=== PATIENT | female | born 1970 | race Caucasian/White ===

== ENCOUNTER 2016-09-20 11:00 | Outpatient (CLI) | payer OTHER ==
--- NOTE | 2016-09-20 18:59 | MRI Report ---
EXAM: LEFT KNEE MRI WITHOUT CONTRAST EXAM DATE: 09/20/2016 11:56 a.m. CLINICAL HISTORY: Left knee pain for one year. COMPARISON: None. TECHNIQUE: Multiplanar, multisequence T1-weighted and fluid-sensitive sequences of the knee without c ontrast. Other: None. FINDINGS: Cruciate ligaments: The posterior cruciate ligament appears normal. The anterior cruciate ligament is thickened with increased intrasubstance signal. Cyst associated with the upper fibers of the anterio r cruciate ligament measuring 1.0 x 1.0 x 0.4 cm. Medial meniscus: Intact. No tear is identified. Lateral meniscus: Intrasubstance degeneration at the root of the anterior horn. No tear identified. Collateral ligaments: The medial and fibular collateral ligaments appear intact. Bones and articular surfaces: Moderate cartilage thinning and fissuring over the central aspect and l ateral facet of the patella with slight associated subchondral edema. Slight cartilage thinning and s urface irregularity in the medial compartment. Mild degree of marrow edema at the posterior medial as pect of the lateral femoral condyle which may be related to the ACL attachment. Extensor mechanism: The patellar tendon and quadriceps insertion appear intact. IMPRESSION: 1. Abnormal thickening and edema involving the anterior cruciate ligament with cystic change at the u pper aspect. This may represent mucoid degeneration and/or scarring from a previous injury. 2. Prominent intrasubstance degeneration at the root of the anterior horn lateral meniscus. 3. Mild medial and patellofemoral compartment osteoarthritis. [facility] MUSCULOSKELETAL RADIOLOGY SECTION Referring Provider Line: [phone] SITE ID: [id number]
== END 2016-09-20 11:01 | disposition home or self-care (01) ==
LOC: DI 11:00
PROVIDERS: ATTEND Registered Nurse Diabetes Educator
DX: M23.342 Other meniscus derangements, anterior horn of lateral meniscus, left knee (principal); M17.12 Unilateral primary osteoarthritis, left knee

== ENCOUNTER 2019-06-28 08:00 | Outpatient (CLI) | payer BC, OTHER ==
[2019-06-28 18:35] LABS: BASOPHILS # (AUTO) 0.1 10^3/uL (0.0-0.1); BASOPHILS % (AUTO) 0.7 %; EOSINOPHILS # (AUTO) 0.1 10^3/uL (0.0-0.7); EOSINOPHILS % (AUTO) 1.4 %; HGB - HEMOGLOBIN 14.1 g/dL (12.0-16.0); LYMPHOCYTES # (AUTO) 1.8 10^3/uL (1.5-3.5); LYMPHOCYTES % (AUTO) 25.5 %; MEAN CORPUSCULAR HEMOGLOBIN 31.6 pg (27.0-31.0); MEAN CORPUSCULAR HGB CONC 32.6 g/dL (32.0-36.0); MEAN CORPUSCULAR VOLUME 97.1 fL (81.0-99.0); MEAN PLATELET VOLUME 11.7 fL (7.9-10.8); MONOCYTES # (AUTO) 0.5 10^3/uL (0.0-1.0); MONOCYTES % (AUTO) 7.6 %; NEUTROPHILS # (AUTO) 4.6 10^3/uL (1.5-6.6); NEUTROPHILS % (AUTO) 64.4 %; PLT - PLATELET COUNT 287 10^3/uL (130-450); RED BLOOD COUNT 4.46 10^6/uL (4.20-5.40); RED CELL DISTRIBUTION WIDTH 12.6 % (12.0-15.0); WHITE BLOOD COUNT 7.1 x10^3/uL (4.8-10.8)
[2019-06-28 18:52] LABS: HB2 TOTAL 14.5 g/dL; HEMOGLOBIN A1C 0.57 g/dL; HEMOGLOBIN A1C % 5.7 % (4.6-6.2)
[2019-06-28 18:54] LABS: ALBUMIN 4.4 g/dL (3.2-5.5); ALBUMIN/GLOBULIN RATIO 1.4 (1.0-2.2); ALKALINE PHOSPHATASE 46 IU/L (42-121); ALT ALANINE AMINOTRANSFERASE 17 IU/L (10-60); AST ASPARTATE AMINOTRANSFERASE 20 IU/L (10-42); BUN - BLOOD UREA NITROGEN 10 mg/dL (6-20); CALCIUM 9.3 mg/dL (8.5-10.3); CARBON DIOXIDE - CO2 26 mmol/L (21-32); CHLORIDE 103 mmol/L (101-111); CHOL/HDL RATIO 3.9 (<4.4); CHOLESTEROL 224 mg/dL; CREATININE 0.8 mg/dL (0.4-1.0); GLUCOSE 103 mg/dL (70-100); HDL CHOLESTEROL 58 mg/dL; LDL CHOLESTEROL,CALCULATED 129 mg/dL; LDL/HDL RATIO 2.2 (<4.4); SODIUM 137 mmol/L (135-145); TOTAL PROTEIN 7.5 g/dL (6.7-8.2); VLDL CHOLESTEROL 37 mg/dL
== END 2019-06-28 23:59 | disposition home or self-care (01) ==
LOC: LAB.WCP 08:00
PROVIDERS: ATTEND Physician Assistant
DX: Z00.00 Encounter for general adult medical examination without abnormal findings (principal)
CPT/HCPCS: 36415; 80053; 80061; 83036; 83721; 84443; 85025

== ENCOUNTER 2019-12-06 15:01 | Outpatient (CLI) | payer OTHER ==
--- NOTE | 2019-12-06 16:06 | SLEEP CARE CONSULTATION ---
Information from patient questionnaire entered by Sherly Clifton. I have reviewed and concur with the information entered by Sherly Clifton. This document represents the service I personally performed and the decisions made by me, Taras Alonso MD, [facility]. History of Present Illness Service Date and Time: 12/06/2019 1501 Reason for Visit: New patient Chief Complaint: reports: Snoring, Other (to see if I still need a CPAP) Date of Onset: 5+ years Usual bedtime: 1540-6305 Time it takes to fall asleep: less than 5 minutes Snores at night: Yes Observed to quit breathing while asleep: No Sleeps alone due to snoring: No Number of times waking at night: 0 Toss, Turn, or Twitch while sleeping: No Recalls having dreams: Yes (occasionally) Usually gets out of bed at: [id number] Feels refreshed in the morning: No Morning headache: No Sleepy or fatigued during the day: Yes Ever fallen asleep while driving: Yes Takes day naps: Yes Dreams during day naps: No Prior sleep studies: Yes Year and Where: 2014 [place] Type of Sleep Study: Polysomnography Additional HPI information: I had the pleasure of seeing Ms. Titus today regarding obstructive sleep apnea-hypopnea. As you know, she is a 49 year old lady who was diagnosed with the sleep-disordered breathing at [facility] in 2010. The AHI was 62.4 and tonia oxygen saturation of 90%. She was prescribed a CPAP device which she used for a few years. She wore a full face mask. She also had a manual CPAP/BiPAP titration study at [facility] in 2014. She noticed some improvement on the treatment. She quit using her CPAP when she lost her insurance several years ago. Subjective Initial [place] Sleepiness Scale score: 9 Past Medical History Past Medical History: reports: Arthritis, Asthma, Depression Social History The patient's occupation is a TEACHER. Patient is and lives in [place]. Have you smoked in the past 12 months: Yes Cigarettes per day (20/pack): 10 Years of smokin Quit date: 11/20/2019 Smoking Pack Years: 12.5 Alcohol use: Yes Alcohol amount and frequency: 2 glasses/day Caffeine use: Yes Caffeine amount and frequency: 3-4 cups coffee or tea Family History Family history of sleep disordered breathing: Yes Family Hx Sleep Apnea: Mother: Snoring, Father: Snoring, Sibling: Sleep apnea - Untreated Allergies and Home Medications Drug allergies reviewed: Yes Home medication list reviewed: Yes Review of Systems Weight loss over past 5 years: 25 Cardiovascular: reports: leg or foot swelling Respiratory: denies: shortness of breath, wheeze, sputum production, chronic cough, other Gastrointestinal: reports: diarrhea, other (IBS?) Urinary: reports: incontinence (stress) Neurological: denies: headaches, seizure, head trauma, disorientation, speech dysfunction, gait or balance problems, fainting or unconsciousness, other Psychiatric: reports: depression Ear/Nose/Throat: reports: wisdom teeth removed Endocrine: denies: thyroid disease, history of goiter, sluggishness, too hot or cold, excessive thirst, increased appetite, increased urination, unexplained weakness, other Musculoskeletal: reports: joint pain, back pain Immunologic: reports: sneezing, itching, allergies to food or environment Physical Exam Vital signs obtained and entered by: To minimize the risk of COVID-19 exposure, detailed exam was not performed. Height: 5 ft 11 in Weight: 265 lb Body Mass Index: 36.9 BMI Classification: Obese Impression and Plan IMPRESSION: 1. Obstructive Sleep Apnea-Hypopnea Syndrome, severe, as previously diagnosed. The patient has not used her CPAP for many years now. Her machine is almost 10 years old. She appears to be symptomatic for loud snore, unrefreshed sleep, cognitive impairment, and daytime hypersomnolence. Narrow oropharynx and obesity are common predisposing factors for obstructive sleep apnea-hypopnea syndrome. Pathophysiology of sleep-disordered breathing was discussed. I recommend proceeding to polysomnography to confirm the diagnosis and to assess severity. If he has significant sleep disordered breathing, a manual CPAP titration study will also be performed to find the optimal treatment pressure. I informed the patient of what the sleep studies involve and after some discussion, she agreed to proceed. Plan: 1. Schedule polysomnography + manual CPAP titration study and return in 1 to 2 weeks after the study to discuss result and initiate therapy. 2. Avoid long distance driving or when feeling sleepy. 3. Avoid alcohol, sedative and muscle relaxant around bedtime. 4. Attempt to lose weight. Visit Type: In Office Time Spent with Patient (minutes): 15 Provider Statement: I spent 100% of the Face to Face Visit with the patient with greater than 50% spent counseling the patient and coordination of care.
== END 2019-12-06 15:02 | disposition home or self-care (01) ==
LOC: SC 15:01
PROVIDERS: ATTEND Internal Medicine Pulmonary Disease
DX: G47.33 Obstructive sleep apnea (adult) (pediatric) (principal); E66.9 Obesity, unspecified; Z68.36 Body mass index [BMI] 36.0-36.9, adult
CPT/HCPCS: 99203; 99212

== ENCOUNTER 2020-05-22 19:42 | Outpatient (CLI) | payer OTHER | END 2020-05-22 19:43 | disposition home or self-care (01) | LOC: SC 19:42 | PROVIDERS: ATTEND Internal Medicine Pulmonary Disease | DX: G47.33 Obstructive sleep apnea (adult) (pediatric) (principal) | CPT/HCPCS: 95810 ==

== ENCOUNTER 2020-05-30 15:58 | Outpatient (CLI) | payer OTHER ==
--- NOTE | 2020-05-30 16:28 | SLEEP CARE CONSULTATION ---
Information from patient questionnaire entered by Ele Camacho. I have reviewed and concur with the information entered by Ele Camacho. This document represents the service I personally performed and the decisions made by me, Thao Sandoval ARNP. History of Present Illness Service Date and Time: 05/30/2020 1558 Initial [place] Sleepiness Scale score: 9 Current [place] Sleepiness Scale score: 12 Additional HPI information: JOSE MORSE returns for follow up and results of the recently performed polysomnography. I explained the pathophysiology behind obstructive sleep apnea. We then spent quite a bit of time discussing different treatment options. For mild obstructive sleep apnea, surgery and oral appliance are alternatives to nasal CPAP therapy but in moderate or severe cases, nasal CPAP is the most effective and reliable treatment. Because apnea is primarily in supine position, then positional management therapy could be effective. Methods discussed such as positioning with pillows, using a T-shirt with tennis balls in the back, and shown commercial products that have a pillow format on back to prevent supine sleep. I reviewed the impact of weight changes on sleep apnea and strongly recommended losing weight. After some discussion, the patient opted to go with the nasal CPAP therapy. Nasal autoCPAP set at 4-15 cmH20 will be ordered with rationale explained. A manual titration study will be ordered if unable to find optimal pressure with office adjustments. I explained how CPAP machine works with sample devices [employer] and [employer] [id number] and what to expect when using the machine. Using CPAP every night in order to get used to it was emphasized. Patient advised to put CPAP mask on before getting into bed so as not to fall asleep without CPAP. To assist acclimation to CPAP use, it could also be used for a short time during day while reading or watching TV. The patient was instructed to call the CPAP supplier to discuss any mechanical problem that may occur. If the mask given is uncomfortable or is difficult to keep on through the night even with adjustment, contact the CPAP supplier as many will replace with another mask style if notified before 30 days. If snoring or perceives is not getting enough air or too much air from the machine, notify this office. [facility] patient education PAP tips reviewed and given to patient. Patient counseled not drink alcohol less t vazquez 4 hours before bedtime as it can increase snoring and apnea. Patient was cautioned about risks of drowsy driving until sleepiness symptoms resolve. q Sleep Study - Results Type of Sleep Study: Polysomnography Prior sleep studies: Yes Year and Where: 2014 [place] Polysomnography/Home Sleep Study results: IMPRESSION: The quality of the study is good. The patient had normal sleep efficiency. The sleep architecture was relatively normal as well considering the first night effect. Respiratory monitoring showed severe obstructive sleep apnea-hypopnea (AHI = 30.6) associated with frequent oxyhemoglobin desaturation and mild hypoxia (tonia oxygen saturation of 84%). The respiratory events occurred almost exclusively during supine sleep (supine AHI = 65.1; non-supine = 4.22). Snore was loud in intensity. There was no significant periodic leg movement of sleep. Cardiac rhythm was normal sinus rhythm without significant arrhythmia. No abnormal behavior (parasomnia) observed during the night. Allergies and Home Medications Home medication list reviewed: Yes (no changes) Review of Systems Review of systems same as previous: Yes (no changes) Physical Exam Heart Rate: 75 O2 Saturation: 98 Height: 5 ft 11 in Weight: 263 lb Body Mass Index: 36.6 BMI Classification: Obese Impression and Plan 1. Obstructive Sleep Apnea-Hypopnea Syndrome, severe, with lowest oxygen saturation of 84%. Obviously this is the cause of the patients symptoms of unrefreshed sleep, and excessive daytime sleepiness. Positive pressure therapy could benefit depression. As mentioned above, the patient will be started on nasal autoCPAP therapy with pressure set at 4-15 cmH2O. A manual titration study will be completed if unable to find optimal treatment pressure with office adjustments. Compliance guidelines also reviewed. A copy of compliance guidelines will be given for reference at check out. Because the apnea is more severe supine, I instructed to avoid sleeping supine using pillow positioning until able to start CPAP use. * Nasal auto CPAP therapy, pressure at 4-15 cm H2O. * Attempt to lose weight. * Avoid alcohol consumption near bedtime. * Avoid supine sleep until using CPAP. * The patient is again cautioned about driving until sleepiness completely resolves. * Return one month after CPAP obtained. I will assess response to therapy and compliance at that time. Counseling Topics: Weight loss health impact Visit Type: In Office Time Spent with Patient (minutes): 20 Provider Statement: I spent 100% of the Face to Face Visit with the patient with greater than 50% spent counseling the patient and coordination of care.
== END 2020-05-30 15:59 | disposition home or self-care (01) ==
LOC: SC 15:58
PROVIDERS: ATTEND Nurse Practitioner Family
DX: G47.33 Obstructive sleep apnea (adult) (pediatric) (principal); E66.9 Obesity, unspecified; Z68.36 Body mass index [BMI] 36.0-36.9, adult
CPT/HCPCS: 99212; 99213

== ENCOUNTER 2020-06-07 08:00 | Outpatient (CLI) | payer OTHER | END 2020-06-07 23:59 | disposition home or self-care (01) | LOC: LAB.R 08:00 | PROVIDERS: ATTEND Physician Assistant Medical | DX: J02.9 Acute pharyngitis, unspecified (principal); Z20.822 Contact with and (suspected) exposure to COVID-19 ==

== ENCOUNTER 2020-06-19 07:00 | Outpatient (CLI) | payer OTHER ==
--- NOTE | 2020-06-19 18:10 | XRAY Report ---
PROCEDURE: Knee 2 View LT INDICATIONS: L KNEE PX TECHNIQUE: 2 views of the left knee(s) were acquired. COMPARISON: None. FINDINGS: Bones: No fractures or dislocations. No suspicious bony lesions. Note is made of mild medial luigi rtment joint space narrowing. Soft tissues: No joint effusion. No suspicious soft tissue calcifications. IMPRESSION: Left knee shows no trauma. Mild degenerative osteoarthritic joint space narrowing is not ed at the medial compartment. Reviewed by: Farhat Zheng MD on 06/19/2020 5:09 PM [facility] Approved by: Farhat Zheng MD on 06/19/2020 5:09 PM [facility] Station ID: [id number]
== END 2020-06-19 23:59 | disposition home or self-care (01) ==
LOC: DI.N 07:00
PROVIDERS: ATTEND Nurse Practitioner
DX: M17.12 Unilateral primary osteoarthritis, left knee (principal); M25.562 Pain in left knee
CPT/HCPCS: 36415; 80053; 82553; 85025; 85651

== ENCOUNTER 2020-06-19 08:00 | Outpatient (CLI) | payer OTHER ==
[2020-06-19 20:43] LABS: BASOPHILS # (AUTO) 0.1 10^3/uL (0.0-0.1); BASOPHILS % (AUTO) 0.9 %; EOSINOPHILS # (AUTO) 0.1 10^3/uL (0.0-0.7); EOSINOPHILS % (AUTO) 1.3 %; HGB - HEMOGLOBIN 13.7 g/dL (12.0-16.0); LYMPHOCYTES # (AUTO) 1.7 10^3/uL (1.5-3.5); LYMPHOCYTES % (AUTO) 25.3 %; MEAN CORPUSCULAR HEMOGLOBIN 31.9 pg (27.0-31.0); MEAN CORPUSCULAR HGB CONC 33.4 g/dL (32.0-36.0); MEAN CORPUSCULAR VOLUME 95.3 fL (81.0-99.0); MEAN PLATELET VOLUME 12.1 fL (7.9-10.8); MONOCYTES # (AUTO) 0.4 10^3/uL (0.0-1.0); MONOCYTES % (AUTO) 6.2 %; NEUTROPHILS # (AUTO) 4.4 10^3/uL (1.5-6.6); PLT - PLATELET COUNT 288 10^3/uL (130-450); RED CELL DISTRIBUTION WIDTH 12.7 % (12.0-15.0); WHITE BLOOD COUNT 6.7 x10^3/uL (4.8-10.8)
[2020-06-19 20:52] LABS: ALBUMIN 4.5 g/dL (3.2-5.5); ALBUMIN/GLOBULIN RATIO 1.5 (1.0-2.2); CALCIUM 9.5 mg/dL (8.5-10.3); POTASSIUM 3.9 mmol/L (3.5-5.0); TOTAL PROTEIN 7.5 g/dL (6.7-8.2)
== END 2020-06-19 23:59 | disposition home or self-care (01) ==
LOC: LAB.N 08:00
PROVIDERS: ATTEND Nurse Practitioner
DX: M25.562 Pain in left knee (principal)
CPT/HCPCS: 36415; 80053; 82553; 85025; 85651

== ENCOUNTER 2020-11-12 08:00 | Outpatient (CLI) | payer OTHER ==
[2020-11-12 18:06] LABS: BASOPHILS # (AUTO) 0.1 10^3/uL (0.0-0.1); EOSINOPHILS # (AUTO) 0.2 10^3/uL (0.0-0.7); EOSINOPHILS % (AUTO) 3.6 %; HGB - HEMOGLOBIN 13.2 g/dL (12.0-16.0); LYMPHOCYTES # (AUTO) 1.6 10^3/uL (1.5-3.5); LYMPHOCYTES % (AUTO) 26.1 %; MEAN CORPUSCULAR HEMOGLOBIN 31.5 pg (27.0-31.0); MEAN CORPUSCULAR VOLUME 95.5 fL (81.0-99.0); MONOCYTES # (AUTO) 0.5 10^3/uL (0.0-1.0); MONOCYTES % (AUTO) 8.3 %; NEUTROPHILS # (AUTO) 3.8 10^3/uL (1.5-6.6); NEUTROPHILS % (AUTO) 60.5 %; PLT - PLATELET COUNT 342 10^3/uL (130-450); RED BLOOD COUNT 4.19 10^6/uL (4.20-5.40); RED CELL DISTRIBUTION WIDTH 12.3 % (12.0-15.0); WHITE BLOOD COUNT 6.2 x10^3/uL (4.8-10.8)
[2020-11-12 18:41] LABS: ALBUMIN 3.9 g/dL (3.2-5.5); ALBUMIN/GLOBULIN RATIO 1.3 (1.0-2.2); ALKALINE PHOSPHATASE 44 IU/L (42-121); ALT ALANINE AMINOTRANSFERASE 17 IU/L (10-60); AST ASPARTATE AMINOTRANSFERASE 16 IU/L (10-42); BILIRUBIN,TOTAL 0.7 mg/dL (0.2-1.0); BUN - BLOOD UREA NITROGEN 18 mg/dL (6-20); CALCIUM 9.2 mg/dL (8.5-10.3); CARBON DIOXIDE - CO2 26 mmol/L (21-32); CHLORIDE 102 mmol/L (101-111); CHOLESTEROL 209 mg/dL; GFR - MDRD 59 (>89); GLUCOSE 105 mg/dL (70-100); HDL CHOLESTEROL 70 mg/dL; LDL CHOLESTEROL,CALCULATED 129 mg/dL; LDL/HDL RATIO 1.8 (<4.4); POTASSIUM 4.5 mmol/L (3.5-5.0); SODIUM 137 mmol/L (135-145); TOTAL PROTEIN 6.9 g/dL (6.7-8.2); TRIGLYCERIDES 52 mg/dL; VLDL CHOLESTEROL 10 mg/dL
[2020-11-12 18:45] LABS: THYROID STIMULATING HORMONE 1.58 uIU/mL (0.34-5.60)
== END 2020-11-12 23:59 | disposition home or self-care (01) ==
LOC: LAB.WCP 08:00
PROVIDERS: ATTEND Family Medicine
DX: Z00.00 Encounter for general adult medical examination without abnormal findings (principal)
CPT/HCPCS: 36415; 80053; 80061; 83721; 84443; 85025

== ENCOUNTER 2021-04-23 09:41 | Day surgery (SDC) | payer OTHER ==
[2021-04-23] MEDS ORDERED: LACTATED RINGERS 1,000 ML IV ONE (10:15)
--- NOTE | 2021-04-23 10:32 | ANESTHESIA ---
Pre-Anesthesia VS, & Labs - Diagnosis screening - Procedure colonoscopy Vital Signs: Temp Pulse Resp BP Pulse Ox 36.7 C 84 20 151/86 H 100 04/23/21 10:02 04/23/21 10:02 04/23/21 10:02 04/23/21 10:02 04/23/21 10:02 Height: 5 ft 11 in Weight (kg): 115 kg Body Mass Index: 35.3 BMI Classification: Obese - NPO >8 hours - Is Patient ?: No Home Medications and Allergies Home Medications: Ambulatory Orders Cetirizine [ZyrTEC] 10 mg PO DAILY 04/23/21 Fluticasone/Salmeterol [Advair 250-50 Diskus] 1 puffs PO DAILY 04/23/21 Montelukast [Singulair] 10 mg PO DAILY 04/23/21 Omeprazole 40 mg PO DAILY 04/23/21 buPROPion [Wellbutrin Sr] 100 mg PO BID 04/23/21 Cetirizine [ZyrTEC] 10 mg PO DAILY 04/23/21 Fluticasone/Salmeterol [Advair 250-50 Diskus] 1 puffs PO DAILY 04/23/21 Montelukast [Singulair] 10 mg PO DAILY 04/23/21 Omeprazole 40 mg PO DAILY 04/23/21 buPROPion [Wellbutrin Sr] 100 mg PO BID 04/23/21 Allergies/Adverse Reactions: Allergies Allergy/AdvReac Type Severity Reaction Status Date / Time Sulfa (Sulfonamide Allergy Edema Verified 04/08/18 19:36 Antibiotics) Anes History & Medical History - Anesthetic History Anesthesia Complications: reports: No previous complications - Medical History Cardiovascular: reports: None Pulmonary: reports: Asthma, Shortness of breath, Sleep apnea Gastrointestinal: reports: None Urinary: reports: None Neuro: reports: None Musculoskeletal: reports: Osteoarthritis, Chronic back pain Endocrine/Autoimmune: reports: None Blood Disorders: reports: None Skin: reports: None Smoking Status: Former smoker History of Cancer?: No - Surgical History Gynecologic: reports: section Exam General: Alert, Oriented x3 Dental: WNL Mouth Opening: Greater than 4 Fingerbreadths Neck Mobility: Normal Mallampati classification: II Thyromental Distance: greater than 6 cm Respiratory: Lungs clear Cardiovascular: Regular rate Plan Anesthesia Type: Total IV Consent for Procedure(s) Verified and Reviewed: Yes Code Status: Attempt Resuscitation ASA classification: 2-Mild systemic disease Is this case an emergency?: No
[2021-04-23] MEDS ORDERED: PROPOFOL 500 MG/50 ML 500 MG/50 ML VIAL ONE (10:36)
[2021-04-23] MEDS ORDERED: MIDAZOLAM 2 MG/2 ML VIAL ONE (10:49)
[2021-04-23] MEDS ORDERED: LIDOCAINE-MPF 2% 5 ML VIAL ONE (10:59)
[2021-04-23] MEDS ORDERED: LACTATED RINGERS 400 ML IV ONE (11:15)
[2021-04-23 11:32] VITALS: BP 128/81
--- NOTE | 2021-04-23 15:20 | ANESTHESIA POST OP EVALUATION ---
Anesthesia Post Eval - Post Anesthesia Eval Vitals: Last Vital Signs Temp 36.5 C 04/23/21 11:30 Pulse 76 04/23/21 11:30 Resp 14 04/23/21 11:30 BP 128/81 H 04/23/21 11:30 Pulse Ox 100 04/23/21 11:30 CV Function Including HR & BP: Stable Pain Control: Satisfactory Nausea & Vomiting: Negative Mental Status: Baseline Respiratory Status: Airway Patent Hydration Status: Satisfactory Anesthesia Complications: None
== END 2021-04-23 09:42 | disposition home or self-care (01) ==
LOC: SDS 09:41
PROVIDERS: ATTEND Surgery
DX: Z12.11 Encounter for screening for malignant neoplasm of colon (principal); K64.8 Other hemorrhoids; G47.33 Obstructive sleep apnea (adult) (pediatric); E66.9 Obesity, unspecified; Z68.35 Body mass index [BMI] 35.0-35.9, adult; Z87.891 Personal history of nicotine dependence
CPT/HCPCS: 45378; J7120

== ENCOUNTER 2022-02-01 12:24 | Outpatient (CLI) | payer OTHER ==
[2022-02-01 19:11] LABS: BASOPHILS # (AUTO) 0.1 10^3/uL (0.0-0.1); BASOPHILS % (AUTO) 0.9 %; EOSINOPHILS # (AUTO) 0.1 10^3/uL (0.0-0.7); EOSINOPHILS % (AUTO) 2.1 %; HCT - HEMATOCRIT 41.5 % (37.0-47.0); HGB - HEMOGLOBIN 13.5 g/dL (12.0-16.0); LYMPHOCYTES # (AUTO) 1.2 10^3/uL (1.5-3.5); LYMPHOCYTES % (AUTO) 20.8 %; MEAN CORPUSCULAR HEMOGLOBIN 31.1 pg (27.0-31.0); MEAN CORPUSCULAR HGB CONC 32.5 g/dL (32.0-36.0); MEAN CORPUSCULAR VOLUME 95.6 fL (81.0-99.0); MEAN PLATELET VOLUME 12.5 fL (7.9-10.8); MONOCYTES # (AUTO) 0.5 10^3/uL (0.0-1.0); NEUTROPHILS # (AUTO) 3.9 10^3/uL (1.5-6.6); PLT - PLATELET COUNT 278 10^3/uL (130-450); RED BLOOD COUNT 4.34 10^6/uL (4.20-5.40); WHITE BLOOD COUNT 5.8 x10^3/uL (4.8-10.8)
[2022-02-01 19:13] LABS: CREATININE,URINE 41.9 mg/dL; MICROALBUM/CREATININE RATIO,UR 4.8 ug/mg (<30.0); MICROALBUMIN,URINE 0.2 mg/dL (0-300.0)
[2022-02-01 19:23] LABS: ALBUMIN/GLOBULIN RATIO 1.3 (1.0-2.2); ALKALINE PHOSPHATASE 46 IU/L (42-121); ALT ALANINE AMINOTRANSFERASE 25 IU/L (10-60); AST ASPARTATE AMINOTRANSFERASE 20 IU/L (10-42); BILIRUBIN,TOTAL 0.8 mg/dL (0.2-1.0); BUN - BLOOD UREA NITROGEN 10 mg/dL (6-20); CARBON DIOXIDE - CO2 26 mmol/L (21-32); CHLORIDE 103 mmol/L (101-111); CHOL/HDL RATIO 3.4 (<4.4); CHOLESTEROL 178 mg/dL; CREATININE 0.9 mg/dL (0.4-1.0); GFR - MDRD 66 (>89); GLUCOSE 97 mg/dL (70-100); HDL CHOLESTEROL 52 mg/dL; LDL CHOLESTEROL,CALCULATED 114 mg/dL; LDL/HDL RATIO 2.2 (<4.4); POTASSIUM 4.3 mmol/L (3.5-5.0); SODIUM 136 mmol/L (135-145); TOTAL PROTEIN 7.1 g/dL (6.7-8.2); TRIGLYCERIDES 58 mg/dL; VLDL CHOLESTEROL 12 mg/dL
[2022-02-01 19:55] LABS: THYROID STIMULATING HORMONE 1.26 uIU/mL (0.34-5.60)
[2022-02-01 22:36] LABS: ESTIMATED AVERAGE GLUCOSE 108 mg/dL (70-100); HEMOGLOBIN A1c% 5.4 % (4.27-6.07)
== END 2022-02-01 12:25 | disposition home or self-care (01) ==
LOC: LAB.N 12:24
PROVIDERS: ATTEND Physician Assistant
DX: Z00.00 Encounter for general adult medical examination without abnormal findings (principal); Z13.220 Encounter for screening for lipoid disorders; R73.01 Impaired fasting glucose; Z13.29 Encounter for screening for other suspected endocrine disorder
CPT/HCPCS: 36415; 80053; 80061; 82043; 82570; 83036; 83721; 84443; 85025

== ENCOUNTER 2022-04-03 08:57 | Outpatient (CLI) | payer OTHER ==
--- NOTE | 2022-04-03 16:31 | CT Report ---
PROCEDURE: Low Dose Lung Cancer Screen INDICATIONS: HIST OF SMOKING TECHNIQUE: Noncontrast low-dose axial images were acquired from the pulmonary apices to the posterior costophren ic angles. Multiplanar MIP reformats were then reconstructed. For radiation dose reduction, the follo wing was used: automated exposure control, adjustment of mA and/or kV according to patient size. COMPARISON: None. FINDINGS: Image quality: Adequate. Lungs and pleura: Nodules include: -Lateral superior right middle lobe: 3 mm (4/133). -Left upper lobe/apex: 3 mm (4/60). -Medial left lower lobe: 3 mm (4/242). A calcified granuloma is also present at the left lower lobe. No consolidation or pleural effusion. Mediastinum: No pericardial effusion. Thoracic aorta and central pulmonary arteries are normal in s ize. Esophagus is normal in caliber. Bones and chest wall: Multilevel degenerative change of the visualized spine. No axillary or suprac lavicular adenopathy by size criteria. Abdomen: Possible 1.5 cm left adrenal nodule (3/53). IMPRESSION: 1. Lung RADS 2 - benign. Recommendation: Continue annual screening with low-dose noncontrast chest CT in 12 months. 2. Possible left adrenal nodule versus other etiology such as gastric fundal diverticulum. Consider e valuation with adrenal protocol CT with and without contrast. Reviewed by: Anibal Bey MD on 04/03/2022 4:29 PM PST Approved by: Anibal Bye MD on 04/03/2022 4:29 PM PST Station ID: [id number]
== END 2022-04-03 08:58 | disposition home or self-care (01) ==
LOC: DI 08:57
PROVIDERS: ATTEND Physician Assistant
DX: Z12.2 Encounter for screening for malignant neoplasm of respiratory organs (principal); Z87.891 Personal history of nicotine dependence

== ENCOUNTER 2022-04-19 09:37 | Outpatient (CLI) | payer OTHER ==
[2022-04-19] MEDS ORDERED: iohexoL-300 100 ML VIAL ONE (09:48)
[2022-04-19] MEDS ORDERED: iohexoL-300 100 ML VIAL IVP ONE (10:07)
--- NOTE | 2022-04-21 12:16 | CT Report ---
PROCEDURE: ABDOMEN W/WO INDICATIONS: LEFT ADRENAL MASS CONTRAST: 100ml omni 300 TECHNIQUE: 4 phase scanning was performed. After the administration of intravenous contrast, 5 mm thick section s acquired from the diaphragm to the symphysis. 5 mm coronal and sagittal reformats were acquired. For radiation dose reduction, the following was used: automated exposure control, adjustment of mA a nd/or kV according to patient size. COMPARISON: Chest CT 04/03/2022 FINDINGS: Image quality: Excellent. Lung bases: Lung bases are clear. Heart size is normal. Adrenal glands: 1.5 x 1.7 cm well-circumscribed round mass arises from in the region of the medial l imb of the left adrenal gland. Precontrast Hounsfield units are 48. Postcontrast Hounsfield units are 76 and delayed phase Hounsfield units are 54. This results in absolute washout of 79% and relative w ashout of 29%. There are no calcifications. A discrete connection to the left adrenal gland is not we ll seen as there is a fat plane between the gland and the lesion on coronal images. Other solid organs: The liver is normal size and attenuation. No mass. Gallbladder is partially deco mpressed, normal. Biliary system is non dilated. Pancreas is normal in morphology. Spleen is casey l in size and enhancement. Both kidneys demonstrate normal size and enhancement, without hydronephro sis or nephrolithiasis. Nodes and vessels: No retroperitoneal or mesenteric adenopathy by size criteria. Aorta and inferior vena cava are normal in size. Bowel and peritoneum: Unenhanced bowel loops are normal in caliber. No free fluid or air. Bones: No suspicious bony lesions. No vertebral body compression fractures. Disc and endplate dege neration at L4-5. Miscellaneous: Tiny fat-containing umbilical hernia.. IMPRESSION: 1. 1.7 cm round mass with close association to the medial limb left adrenal gland. It demonstrates ab solute washout value consistent with a lipid poor adrenal adenoma, but precontrast Hounsfield units r aises suspicion of malignancy despite washout characteristics. A visible fat plane between the gland and the lesion suggests this nodule is of another etiology such as gastric diverticulum, less likely vascular aneurysm. Consider MR imaging for further characterization and/or 3-6 month follow-up adrena l protocol CT for reassessment. Reviewed by: Shanell Su MD on 04/21/2022 12:15 PM PST Approved by: Shanell Su MD on 04/21/2022 12:15 PM PST Station ID: [id number]
== END 2022-04-19 09:38 | disposition home or self-care (01) ==
LOC: DI 09:37
PROVIDERS: ATTEND Physician Assistant
DX: E27.8 Other specified disorders of adrenal gland (principal)
CPT/HCPCS: 74170; Q9967

== ENCOUNTER 2022-05-03 08:27 | Outpatient (CLI) | payer OTHER ==
[~2022-05-03 08:27] MED LIST: GADOBUTROL 15 MMOL/15 ML VIAL ONE
[2022-05-03] MEDS ORDERED: GADOBUTROL 15 MMOL/15 ML VIAL IVP ONE (10:12)
--- NOTE | 2022-05-04 18:11 | MRI Report ---
PROCEDURE: ABDOMEN W/WO INDICATIONS: ADRENAL MASS CONTRAST: 10.7 TECHNIQUE: Coronal ultra fast SE, axial 2D spoiled GE in- and [id number]; axial breath-hold T2 fast SE. Dynam ic axial ultra fast GE during the administration of contrast; post-contrast coronal ultra fast GE or 2D spoiled GE with fat saturation from the hepatic dome to the iliac crests. Optional diffusion weig hted imaging and ADC may be performed. COMPARISON: None. Correlation made to CT abdomen 04/19/2022 FINDINGS: Image quality: Excellent. Lung bases: No basal pleural effusions. Heart size is normal. Adrenal glands: A well-circumscribed 1.6 cm nodule arises between the left adrenal gland, splenic art fide, and gastric cardia. There is no signal loss on T1 out of phase or fat saturated imaging. T1 sign al is isointense to spleen. T2 fat-saturated imaging also demonstrates the nodule to be isointense to spleen. There is no visible connection to the adjacent splenic artery. Most coronal images demonstra te discrete fat plane between the nodule and adrenal gland. Postcontrast coronal images demonstrate a probable fat plane between the nodule and the stomach. The nodule is enhancing similar to spleen. Solid organs: Liver and spleen are normal in size and enhancement. Gallbladder is normal. Biliary system is non dilated. Pancreas is normal in morphology. Both kidneys demonstrate normal size and e nhancement, without hydronephrosis. Nodes and vessels: No retroperitoneal or mesenteric adenopathy by size criteria. Aorta and inferior vena cava are normal in size. Bowel and peritoneum: Unenhanced bowel loops are normal in caliber. No free fluid. Bones and soft tissues: No ventral hernias. Bone marrow is normal in overall signal. IMPRESSION: 1. 1.6 cm circumscribed nodule with signal and enhancement characteristics most consistent with a spl enule. Differential diagnosis includes gastric diverticulum. Adrenal nodule and aneurysm are felt unl ikely. 6 month follow-up MR imaging to document stability is recommended. Reviewed by: Shanell Su MD on 05/04/2022 5:10 PM [facility] Approved by: Shanell Su MD on 05/04/2022 5:10 PM [facility] Station ID: [id number]
== END 2022-05-03 08:28 | disposition home or self-care (01) ==
LOC: DI 08:27
PROVIDERS: ATTEND Family Medicine
DX: E27.8 Other specified disorders of adrenal gland (principal)
CPT/HCPCS: 74183; A9585

== ENCOUNTER 2022-05-13 16:59 | Outpatient (CLI) | payer OTHER ==
--- NOTE | 2022-05-13 16:19 | SLEEP CARE CONSULTATION ---
Information from patient questionnaire entered by Peggy Meyer. I have reviewed and concur with the information entered by Peggy Meyer. This document represents the service I personally performed and the decisions made by me, Thao Sandoval ARNP. History of Present Illness Service Date and Time: 05/13/2022 1600 Previous diagnosis: Severe, Obstructive Sleep Apnea-Hypopnea Syndrome AHI: 30.6 (in 2020) Reason for follow up: annual (LAST SEEN 05/2020 NOT ON CPAP) Prior sleep studies: Yes Year and Where: 2014 [place] Type of Sleep Study: Polysomnography HPI additional information: I had the pleasure of seeing JOSE MORSE today via video telehealth visit regarding the possibility of her having a sleep disorder. She was previously diagnosed with severe obstructive sleep apnea in 05/2020. She is not currently on CPAP because she was unable to afford to get her CPAP back in 2020. Her current complaint is snoring. She has lost about 50 pounds since her last sleep study. The patient tells me that she normally goes to bed around 11 pm to 12 AM, and it takes her approximately 5 minutes to fall asleep. She has been told that she snores loudly and irregularly at night. She has not been observed to stop breathing in her sleep. She can recall waking up on the average of 1 times during the night. Most of the time she wakes up because of dog or daughter moving in the night. She has not awakened for her own snoring, choking, and having to gasp for air. There is a lot of tossing and turning in her sleep. Generally there is no recollection of dreams. She usually wakes up at 0600 and feels refreshed normally overall. She usually does not have a morning headache. During the day she does not feel sleepy and fatigued. She has never fallen asleep while driving nor has any accident due to sleepiness. She usually naps at end of week for about 1-2 hour during the day. If she naps, upon falling asleep during the day she denies having vivid dreams. She denies having impaired concentration during the day. There is no somniloquy (sleep talking) or somnambulism (sleep walking). She has never experienced sleep paralysis, cataplexy, or symptoms of restless leg syndrome. Sleep Study - Results Type of Sleep Study: Polysomnography Prior sleep studies: Yes Year and Where: 2014 [place] Subjective Initial Holbrook Sleepiness Scale score: 9 Current Holbrook Sleepiness Scale score: 5 (05/13/22) Allergies and Home Medications Drug allergies reviewed: Yes (Sulfa) Home medication list reviewed: Yes (no changes) Review of Systems Review of systems same as previous: No (Partial knee replacement in June 2021) Physical Exam Vital signs obtained and entered by: VIA PHONE PEGGY Barnett MA Height: 5 ft 11 in (PER PT ) Weight: 230 lb (PER PT) Body Mass Index: 32.1 BMI Classification: Obese Impression and Plan 1. Suspected Obstructive Sleep Apnea-Hypopnea Syndrome, as previously diagnosed and as suggested by a history of irregular snoring. Patient had a previous sleep study but she never started therapy for her sleep apnea because she could not afford to pay copay for CPAP. She has lost 50 pounds since her last sleep study and many of her previous symptoms have resolved. I recommend proceeding to polysomnography to confirm the diagnosis and to assess severity. I obtained agr eement to proceed. The pathophysiology of obstructive sleep apnea-hypopnea syndrome was discussed with the patient and health risks of cardiovascular and cerebrovascular disease if not treated. Risks of drowsy driving discussed in detail and patient advised to avoid long distance driving and to wool puller at the first sign of drowsiness. Patient agreed to plan. 2. Obesity, unspecified. Currently patients BMI is 32.1. Obesity increases the risk of apnea, CPAP pressure requirements and overall health risks especially cardiovascular and diabetes. Thus patient is advised to lose weight. * Schedule polysomnography * Avoid long distance driving or driving when feeling sleepy. * Avoid alcohol, sedative and muscle relaxant around bedtime. * Attempt to lose weight. * Review instructions provided by trained office staff on how to prepare for the sleep study. * Return for follow-up after sleep study completed. Counseling Topics: Weight loss health impact Visit Type: Telehealth Video Video Type: [place] Patient Location: [facility] Location of Provider: Office Patient agrees and consents to this telehealth visit type: Yes Patient agrees to have their insurance billed: Yes Time Spent with Patient (minutes): 20 Provider Statement: I spent 100% of the Telehealth Video Call with the patient with greater than 50% spent counseling the patient and coordination of care.
== END 2022-05-13 17:00 | disposition home or self-care (01) ==
LOC: SC 16:59
PROVIDERS: ATTEND Nurse Practitioner Family
DX: G47.33 Obstructive sleep apnea (adult) (pediatric) (principal); E66.9 Obesity, unspecified; Z68.32 Body mass index [BMI] 32.0-32.9, adult

== ENCOUNTER 2022-06-24 14:46 | Outpatient (CLI) | payer OTHER | END 2022-06-24 14:47 | disposition home or self-care (01) | LOC: SC 14:46 | PROVIDERS: ATTEND Nurse Practitioner Family | DX: G47.33 Obstructive sleep apnea (adult) (pediatric) (principal); R09.02 Hypoxemia | CPT/HCPCS: 95806 ==

== ENCOUNTER 2022-07-23 15:18 | Outpatient (CLI) | payer OTHER ==
--- NOTE | 2022-07-23 15:47 | SLEEP CARE CONSULTATION ---
Information from patient questionnaire entered by Peggy Meyer. I have reviewed and concur with the information entered by Peggy Meyer. This document represents the service I personally performed and the decisions made by me, Thao Sandoval ARNP. History of Present Illness Service Date and Time: 07/23/2022 1518 Initial Ogden Sleepiness Scale score: 9 Current Ogden Sleepiness Scale score: 8 (07/23/22) Additional HPI information: JOSE MORSE returns for follow up and results of the recently performed home sleep study. I explained the pathophysiology behind obstructive sleep apnea. We then spent quite a bit of time discussing different treatment options. For mild obstructive sleep apnea, surgery and oral appliance are alternatives to nasal CPAP therapy but in moderate or severe cases, nasal CPAP is the most effective and reliable treatment. Because apnea is primarily in supine position, then positional management therapy could be effective. Methods discussed such as positioning with pillows, using a T-shirt with tennis balls in the back, or commercial products that have a pillow format on back to prevent supine sleep. I reviewed the impact of weight changes on sleep apnea and strongly recommended losing weight. After some discussion, the patient opted to go with the nasal CPAP therapy. Nasal autoCPAP set at 4-15 cmH20 will be ordered with rationale explained. A manual titration study will be ordered if unable to find optimal pressure with office adjustments. I explained how CPAP machine works and what to expect when using the machine. Using CPAP every night in order to get used to it was emphasized. Patient advised to put CPAP mask on before getting into bed so as not to fall asleep without CPAP. To assist acclimation to CPAP use, it could also be used for a short time during day while reading or watching TV. The patient was instructed to call the CPAP supplier to discuss any mechanical problem that may occur. If the mask given is uncomfortable or is difficult to keep on through the night even with adjustment, contact the CPAP supplier as many will replace with another mask style if notified before 30 days. If snoring or perceives is not getting enough air or too much air from the machine, notify this office. Patient counseled not drink alcohol less than 4 hours before bedtime as it can increase snoring and apnea. Patient was cautioned about risks of drowsy driving until sleepiness symptoms resolve. Patient denies drowsy driving. Sleep Study - Results Type of Sleep Study: Polysomnography (COMPLETED 06/24/22) Prior sleep studies: Yes Year and Where: 2014 [place] Polysomnography/Home Sleep Study results: Physician Impression: The quality of the study is good. The length of the study is adequate (> 240 minutes). Please also see the tabulated and graphic data. 1. Obstructive Sleep Apnea-Hypopnea (ICD-10 G47.33), moderate, with an AHI of 18.7/hr and toina SaO2 of 86%. During the study, the patient had 24 apneas (24 obstructive, 0 central, 0 mixed) and 95 hypopneas. The longest episode lasted 100.5 seconds. The respiratory events occurred almost exclusively during supine sleep (supine AHI was 28.6 and non-supine, 1.71). 2. Hypoxemia (ICD-10 R09.02), mild, with the lowest oxygen saturation of 86 % and 7.6 minutes with SaO2 under 90%. Baseline oxygen saturation was normal (Average oxygen saturation was 93%). Allergies and Home Medications Known drug allergies: Yes (sulfa) Drug allergies reviewed: Yes Home medication list reviewed: Yes (no changes) Allergy and home medication list: Allergies Sulfa (Sulfonamide Antibiotics) Allergy Edema Review of Systems Review of systems same as previous: Yes (partial knee replacement on right) Physical Exam Vital signs obtained and entered by: PEGGY Barnett MA Blood Pressure: 128/68 (LEFT ARM) Cuff size: regular Heart Rate: 66 O2 Saturation: 100 Height: 5 ft 11 in (PER PT ) Weight: 233 lb 6.4 oz Body Mass Index: 32.5 BMI Classification: Obese Impression and Plan 1. Obstructive Sleep Apnea-Hypopnea Syndrome, moderate, with lowest oxygen saturation of 86%. Obviously this is the cause of the patients symptoms of unrefreshed sleep, and excessive daytime sleepiness. Positive pressure therapy could benefit asthma and depression. As mentioned above, the patient will be started on nasal autoCPAP therapy with pressure set at 4-15 cmH2O. Compliance guidelines also reviewed. A copy of compliance guidelines will be given for reference at check out. Because the apnea is more severe supine, I instructed to avoid sleeping supine using pillow positioning until able to start CPAP use. 2. Hypoxemia, mild, with the lowest oxygen saturation of 86 % and 7.6 minutes with SaO2 under 90%. Her baseline oxygen saturation was normal with an average oxygen saturation of 93%. * Nasal auto CPAP therapy, pressure at 4-15 cm H2O. * Attempt to lose weight. * Avoid alcohol consumption near bedtime. * Avoid supine sleep until using CPAP. * The patient is again cautioned about driving until sleepiness completely resolves. * Return one month after CPAP obtained. I will assess response to therapy and compliance at that time. Counseling Topics: Sleeping position, Weight loss health impact Visit Type: In Office Time Spent with Patient (minutes): 12 Provider Statement: I spent 100% of the Face to Face Visit with the patient with greater than 50% spent counseling the patient and coordination of care.
[2022-07-23 15:54] VITALS: BP 128/68
== END 2022-07-23 15:19 | disposition home or self-care (01) ==
LOC: SC 15:18
PROVIDERS: ATTEND Nurse Practitioner Family
DX: G47.33 Obstructive sleep apnea (adult) (pediatric) (principal); R09.02 Hypoxemia; E66.9 Obesity, unspecified; Z68.32 Body mass index [BMI] 32.0-32.9, adult
CPT/HCPCS: 99212

== ENCOUNTER 2022-10-07 11:25 | Outpatient (CLI) | payer OTHER ==
--- NOTE | 2022-10-07 15:56 | XRAY Report ---
PROCEDURE: Knee 4 View BILAT INDICATIONS: PISANO'S CYST KNEE TECHNIQUE: 3 views of the right and left knee(s) were acquired. COMPARISON: None. FINDINGS: Bones: Postsurgical changes compatible with right knee medial compartment hemiarthroplasty. No fract ures or dislocations. No suspicious bony lesions. Moderate left knee medial compartment arthritis. M ild bilateral knee lateral and patellofemoral compartment osteoarthritis. Soft tissues: Small suprapatellar bilateral knee joint effusions. No suspicious soft tissue calcific ations or masses. IMPRESSION: Prior right knee hemiarthroplasty. Bilateral knee osteoarthritis. Small bilateral nonspecific knee joint effusions. Reviewed by: Elle Sharma MD, PhD on 10/07/2022 3:55 PM PDT Approved by: Elle Sharma MD, PhD on 10/07/2022 3:55 PM PDT Station ID: [id number]
--- NOTE | 2022-10-07 17:30 | Ultrasound Report ---
PROCEDURE: Ext Limited Non Vascular INDICATIONS: BAKERS CYST RIGHT KNEE TECHNIQUE: Real-time scanning was performed of the left knee, with image documentation. COMPARISON: None. FINDINGS: Focused ultrasound examination of posterior left knee patient's reported area of palpable lump shows anechoic structure measures 5.3 x 7.6 x 2.5 cm in size without internal vascularity. Low l evel internal echoes is seen. IMPRESSION: Finding likely represent 5.3 x 7.6 x 2.5 cm Tadeo's cyst in left knee posterior fossa. Reviewed by: Jose Verdugo MD on 10/07/2022 5:28 PM PDT Approved by: Jose Verdugo MD on 10/07/2022 5:28 PM PDT Station ID: [id number]
== END 2022-10-07 11:26 | disposition home or self-care (01) ==
LOC: DI 11:25
PROVIDERS: ATTEND Physician Assistant
DX: M71.21 Synovial cyst of popliteal space [Baker], right knee (principal); M17.0 Bilateral primary osteoarthritis of knee; M25.462 Effusion, left knee; M25.461 Effusion, right knee

== ENCOUNTER 2022-10-25 06:57 | Outpatient (CLI) | payer OTHER ==
[2022-10-25] MEDS ORDERED: GADOBUTROL 10 MMOL/10 ML VIAL ONE (07:05)
[2022-10-25] MEDS ORDERED: GADOBUTROL 10 MMOL/10 ML VIAL IVP ONE (07:46)
--- NOTE | 2022-10-27 17:20 | MRI Report ---
PROCEDURE: ABDOMEN W/WO INDICATIONS: LEFT ADRENAL MASS CONTRAST: GADAVIST 10.0 ML TECHNIQUE: Coronal ultra fast SE, axial 2D spoiled GE in- and [id number]; axial breath-hold T2 fast SE. Dynam ic axial ultra fast GE during the administration of contrast; post-contrast coronal ultra fast GE or 2D spoiled GE with fat saturation from the hepatic dome to the iliac crests. Optional diffusion weig hted imaging and ADC may be performed. COMPARISON: MR 10/01/2022, CT 04/03/2022. FINDINGS: Image quality: Excellent. Lung bases and heart: Unremarkable. Liver: No solid mass. Gallbladder and biliary tree: No radiopaque stones or wall thickening. No biliary dilation. Spleen: No splenomegaly. Pancreas: No pancreatic ductal dilation. Adrenals: Stable 1.5 cm nodularity adjacent to the left adrenal nodule. No signal dropout on the out of phase sequence. This lesion follows blood pool enhancement. Kidneys and ureters: No hydronephrosis. No renal cystic lesion which requires follow up. No solid mas s. Bowel and peritoneum: No bowel distension. No pathologic free fluid. Lymph nodes: No central or retroperitoneal adenopathy. Vessels: No infrarenal aortic aneurysm. Bones: No aggressive osseous abnormality. Other: No significant ventral hernia. IMPRESSION: Stable 1.5 cm nodularity adjacent to the left adrenal nodularity. Differential remains a splenule, ga stric cardiac diverticulum, aneurysm, less likely adrenal nodule. Consider additional six-month with CT abdomen without contrast to document one-year stability, followed by an additional annual follow-u p to document two-year stability, which would make this lesion statistically benign. Reviewed by: Aurelio Leonard on 10/27/2022 5:18 PM PDT Approved by: Aurelio Leonard on 10/27/2022 5:18 PM PDT Station ID: [id number]
== END 2022-10-25 06:58 | disposition home or self-care (01) ==
LOC: DI 06:57
PROVIDERS: ATTEND Family Medicine
DX: E27.8 Other specified disorders of adrenal gland (principal)
CPT/HCPCS: 74183; A9585

== ENCOUNTER 2023-01-28 11:11 | Outpatient (CLI) | payer OTHER ==
[2023-01-28 17:46] LABS: BASOPHILS # (AUTO) 0.1 10^3/uL (0.0-0.1); EOSINOPHILS # (AUTO) 0.1 10^3/uL (0.0-0.7); EOSINOPHILS % (AUTO) 1.9 %; HCT - HEMATOCRIT 40.1 % (37.0-47.0); HGB - HEMOGLOBIN 13.3 g/dL (12.0-16.0); LYMPHOCYTES # (AUTO) 1.4 10^3/uL (1.5-3.5); LYMPHOCYTES % (AUTO) 23.3 %; MEAN CORPUSCULAR HEMOGLOBIN 31.9 pg (27.0-31.0); MEAN CORPUSCULAR HGB CONC 33.2 g/dL (32.0-36.0); MEAN CORPUSCULAR VOLUME 96.2 fL (81.0-99.0); MEAN PLATELET VOLUME 11.9 fL (7.9-10.8); MONOCYTES # (AUTO) 0.6 10^3/uL (0.0-1.0); MONOCYTES % (AUTO) 9.7 %; NEUTROPHILS # (AUTO) 3.8 10^3/uL (1.5-6.6); NEUTROPHILS % (AUTO) 63.8 %; PLT - PLATELET COUNT 249 10^3/uL (130-450); RED BLOOD COUNT 4.17 10^6/uL (4.20-5.40); RED CELL DISTRIBUTION WIDTH 12.6 % (12.0-15.0); WHITE BLOOD COUNT 5.9 x10^3/uL (4.8-10.8)
[2023-01-28 18:01] LABS: ALBUMIN 4.3 g/dL (3.2-5.5); ALBUMIN/GLOBULIN RATIO 1.7 (1.0-2.2); ALKALINE PHOSPHATASE 37 IU/L (42-121); ALT ALANINE AMINOTRANSFERASE 11 IU/L (10-60); AST ASPARTATE AMINOTRANSFERASE 13 IU/L (10-42); BILIRUBIN,TOTAL 0.5 mg/dL (0.2-1.0); BUN - BLOOD UREA NITROGEN 15 mg/dL (6-20); CALCIUM 9.5 mg/dL (8.5-10.3); CARBON DIOXIDE - CO2 29 mmol/L (21-32); CHLORIDE 102 mmol/L (101-111); CHOL/HDL RATIO 2.7 (<4.4); CHOLESTEROL 174 mg/dL; GFR - MDRD 58 (>89); GLUCOSE 101 mg/dL (74-104); HDL CHOLESTEROL 65 mg/dL; LDL CHOLESTEROL,CALCULATED 88 mg/dL; LDL/HDL RATIO 1.4 (<4.4); POTASSIUM 4.3 mmol/L (3.5-4.5); SODIUM 135 mmol/L (135-145); TOTAL PROTEIN 6.8 g/dL (6.4-8.9); TRIGLYCERIDES 103 mg/dL (48-352); VLDL CHOLESTEROL 21 mg/dL
== END 2023-01-28 11:12 | disposition home or self-care (01) ==
LOC: LAB.N 11:11
PROVIDERS: ATTEND Physician Assistant
DX: N39.3 Stress incontinence (female) (male) (principal); Z13.220 Encounter for screening for lipoid disorders; G47.33 Obstructive sleep apnea (adult) (pediatric); R15.9 Full incontinence of feces
CPT/HCPCS: 36415; 80053; 80061; 83721; 85025

== ENCOUNTER 2023-04-10 11:08 | Outpatient (CLI) | payer OTHER ==
--- NOTE | 2023-04-10 16:19 | CT Report ---
PROCEDURE: ABDOMEN WO INDICATIONS: LEFT ADRENAL MASS CONTRAST: None TECHNIQUE: After the administration of oral contrast, 5 mm thick sections acquired from the diaphragms to the il iac crests. 5 mm coronal and sagittal reformats were then performed. For radiation dose reduction, the following was used: automated exposure control, adjustment of mA and/or kV according to patient size. COMPARISON: MR of the abdomen 10/25/2022 FINDINGS: Image quality: Excellent. Lung bases: Lung bases are clear. Heart size is normal. Solid organs: Liver and spleen are normal in size. Gallbladder has a normal noncontrast appearance. Pancreas is normal in contours. Both kidneys are normal in size, without hydronephrosis or nephrol ithiasis. The right adrenal gland is normal. No new left adrenal nodules. A 1.6 cm circumscribed nod ule adjacent to the left adrenal gland is stable in size and morphology. Peritoneum and bowel: Bowel loops demonstrate normal wall thickness and caliber. No free fluid or a ir. Nodes and vessels: No retroperitoneal or mesenteric adenopathy by size criteria. Aorta and inferior vena cava are normal in size. Bones: No suspicious bony lesions. No vertebral body compression fractures. Degenerative disc louis ges L4-5 and L5-S1. Miscellaneous: No ventral hernias. IMPRESSION: 1. Stable left upper quadrant soft tissue nodule favored to be a splenule. Follow-up with CT or MR im aging in one year to document two-year stability of this probably benign finding is recommended. Reviewed by: Shanell Su MD on 04/10/2023 4:17 PM PST Approved by: Shanell Su MD on 04/10/2023 4:17 PM PST Station ID: [id number]
== END 2023-04-10 11:09 | disposition home or self-care (01) ==
LOC: DI 11:08
PROVIDERS: ATTEND Physician Assistant
DX: E27.8 Other specified disorders of adrenal gland (principal)